=== PATIENT | male | born 1945 ===

== ENCOUNTER → 2024-07-18 | Outpatient (BNVA) | payer MEDICARE, SELFPAY | END | disposition home or self-care (01) | PROVIDERS: PCP Physician Assistant Medical; Referring Provider Physician Assistant Medical; Visit Provider Urology | DX: N40.1 Benign prostatic hyperplasia with lower urinary tract symptoms (principal); N13.8 Other obstructive and reflux uropathy; N52.9 Male erectile dysfunction, unspecified; I11.0 Hypertensive heart disease with heart failure; I50.9 Heart failure, unspecified; Z80.42 Family history of malignant neoplasm of prostate; N41.1 Chronic prostatitis; E78.00 Pure hypercholesterolemia, unspecified; I21.9 Acute myocardial infarction, unspecified | CPT/HCPCS: 81003; 99212; G0463 ==

== ENCOUNTER → 2024-07-29 | Outpatient (CLI) | payer MEDICARE, SELFPAY ==
[2024-07-29 09:55] LABS: Prostate Specific Antigen 0.48 ng/mL (0-4.00)
== END | disposition home or self-care (01) ==
LOC: COPL 08:24
PROVIDERS: PCP Family Medicine; Referring Provider Urology; Visit Provider Urology
DX: N40.1 Benign prostatic hyperplasia with lower urinary tract symptoms (principal)
CPT/HCPCS: 36415; 84153

== ENCOUNTER 2024-09-11 00:41 | Emergency (ER) | payer MEDICARE, SELFPAY ==
--- NOTE | 2024-09-11 01:02 | PD.EDADULT ---
ED General RME/HPI General Chief complaint: General Adult/Misc Complain Stated complaint: BLOOD PRESSURE HIGH Time Seen by Provider: 09/11/24 00:54 Arrival date/time: 09/11/24 00:41 RME / HPI RME / HPI narrative: This section includes all my notes and documentations, including HPI, PE, and ED course. Yaya Self MD HPI: 79yo male with a history of HTN, HLD presents to the ED for a chief complaint of high blood pressure. Patient states he has not been on any blood pressure medications for the last 2 years, but notes he checks his blood pressure daily. He states that when he checked it tonight, it was noted to be high at 190 systolically. Patient states he recently drove here from the [place] area yesterday, reporting he had chest pain and thought it was due to the seatbelt. He denies any headache, N/V, dizziness or any other associated symptoms. Patient states he took losartan 50mg that belongs to his several hours ago. No other complaints reported. ROS: All negative except as documented in HPI. Physical Exam: General:? Alert and oriented.? No acute distress.?? Eyes:? Conjunctivae and lids clear.? EOMI.? PERRL. ENT:? No nasal congestion.? Neck:? Supple.? No carotid bruit.? No JVD.?? Heart:? RRR.? Lungs:? No respiratory distress.? Good air movement.? No rhonchi, wheezing, rales.?? Skin:? Warm and dry.?? Neuro:? Alert and oriented X 3.? Cranial Nerves II-XII grossly intact.? No peripheral motor deficits. I reviewed all diagnostic test results. My interpretation of the EKG is paced rhythm. Blood tests and urine tests unremarkable. At this point, diagnoses include hypertension. Treatment here included clonidine 0.3 mg. Significant improvement noted. Prescribed clonidine and recommended more outpatient care. Based on my best medical judgment, made decision no further evaluation or treatment indicated at this time. Patient understands and agrees to the discharge instructions customized and printed, see below. Discharge Instructions from Dr. Self printed for you: 1. You were treated for very high BP. 2. Tests showed no damage to your organs, including your heart and kidneys. 3. We need to lower BP to prevent heart attacks and strokes. 4. Take clonidine0.1 mg pills as needed based on SBP (higher number of BP). Check your BP twice daily (about 12 hours apart). If SBP > 140, take one pill. If SBP > 160, take two pills. If SBP > 180, take three pills. If SBP > 200, take four pills. 5. See a private doctor on 09/12/2024 for recheck and further care. 6. Seek immediate medical care with worsening or with any concerns. Instrucciones de benjamín del Dr. Self impresas para usted: 1. Recibi? tratamiento por presi?n arterial muy benjamín. 2. Las pruebas no mostraron da?os en kaitlin ?rganos, incluyendo el coraz?n y los ri?ones. 3. Necesitamos reducir la presi?n arterial para prevenir ataques card?acos y accidentes cerebrovasculares. 4. [place] clonidina en pastillas de 0.1 mg seg?n sea necesario, seg?n la presi?n arterial sist?lica (PAS). Controle marvin presi?n arterial dos veces al d?a (con un intervalo de aproximadamente 12 horas). Si la PAS es > 140, tome stephy pastilla. Si la PAS es > 160, tome dos pastillas. Si la PAS es > 180, tome angel pastillas. Si la PAS es > 200, tome cuatro pastillas. 5. Consulte con un m?dico particular el 12/09/2024 para stephy nueva revisi?n y atenci?n adicional. 6. Busque atenci?n m?dica inmediata si la presi?n arterial empeora o si tiene alguna inquietud. Yaya Self MD Related Data Home Medications ?Medication ?Instructions ?Recorded ?Confirmed simvastatin 10 mg tablet 10 mg PO QPM 12/03/17 07/18/24 doxazosin 4 mg tablet 4 mg PO QDAY 09/24/19 07/18/24 carvedilol 3.125 mg tablet 3.125 mg PO BID 07/18/24 07/18/24 sulfamethoxazole 800 1 tab PO BID 07/18/24 07/18/24 mg-trimethoprim 160 mg tablet (Bactrim DS) Previous Rx's ?Medication ?Instructions ?Recorded clonidine HCl 0.1 mg tablet 0.1 mg PO BID #60 tabs 09/11/24 Allergies Allergy/AdvReac Type Severity Reaction Status Date / Time No Known Allergies Allergy Verified 07/18/24 08:27 Review of Systems Review of Systems Systems Reviewed: All systems reviewed, normal except as documented Past Medical History Past Medical History NEUROLOGIC: Negative Seizures CARDIAC: Positive Cardiac Disorders, Myocardial Infarction, Hypercholesterolemia and Hypertension; Negative Congestive Heart Failure RESPIRATORY: Negative Chronic Obstructive Pulmonary Disease (COPD) GENITOURINARY: Negative Renal Disease ENDOCRINE: Negative Diabetes Mellitus Type 1 or Diabetes Mellitus Type 2 OTHER HISTORY: Negative Autoimmune Disease, Blood Transfusions, Blood Transfusion Reaction or Anesthesia Reactions Family History FAMILY HISTORY: Negative Family Anesthesia Reaction Social History SMOKING STATUS: Never smoker ED Exam Narrative Physical exam: As noted in HPI. Course Quality Measures none Orders Category Date Time Status EKG (ED ONLY) *Do not use* NOW Care 09/11/24 01:05 Completed EKG (ED Only) Stat Exams 09/11/24 01:05 Draft CBC Stat Lab 09/11/24 01:25 Completed CMP [Comprehensive Metabolic Panel] Stat Lab 09/11/24 01:25 Completed Free T4 (Free Thyroxine) Stat Lab 09/11/24 01:25 Completed Magnesium Stat Lab 09/11/24 01:25 Completed TSH [Thyroid Stimulating Hormone] Stat Lab 09/11/24 01:25 Completed Troponin I Stat Lab 09/11/24 01:25 Completed UA, C/S IF [Urinalysis, C/S if Indicated] Stat Lab 09/11/24 01:29 Completed cloNIDine HCL [Catapres] Med 09/11/24 01:04 Discontinued 0.3 mg PO X1 ONE Vital Signs Vital signs: Vital Signs Temperature 97.7 F 09/11/24 01:04 Pulse Rate 61 09/11/24 01:04 Respiratory Rate 18 09/11/24 01:04 Blood Pressure 176/80 H 09/11/24 01:04 Pulse Oximetry (%) 99 09/11/24 01:04 Oxygen Delivery Method Room Air 09/11/24 01:04 [facility] Patient data External records reviewed:: [facility] previous records (Per chart review, patient has no relevant previous ED visits or admissions to this facility.) Clinical information provided by:: patient Social determinants that could affect healthcare access:: none Patient has the following chronic illnesses:: HTN, HLD How is presenting disease/condition affected by chronic disease/condition?: caused by Evaluation data The following diagnostics were reviewed and interpreted by me:: lab results and EKG tracing(s) (My interpretation of the EKG is: Paced rhythm (60 bpm). Yaya Self MD) Lab and/or radiology exams considered but not ordered:: none Interpretation Summary: Normal diagnostics Medications Medications considered but not ordered:: none Medication administrations:: Medication Administration History Discontinued Medications Clonidine (Clonidine Hcl 0.1 Mg Tablet) 0.3 mg PO X1 ONE Stop: 09/11/24 01:05 Last Admin: 09/11/24 01:26 Dose: 0.3 mg Documented By: EVERT Clonidine Consultations Consultation(s) initiated? (list below): No Diagnosis Differential Diagnosis ED Complaint MDM: [place], hypertensive urgency, hypertensive emergency, electrolyte abnormalities Most likely diagnosis given after review of the tests above:: Hypertensive urgency Admission Indicated Admission indicated?: not indicated Explain why admission is indicated or not indicated:: With significant improvement, there was no indication for admission. Admission Request Was there a request for admission?: No Disposition Plan Disposition Plan: Discharge Discharge Attestation Discharge Attestation: The patient and all family members were given an opportunity to ask questions and understood the discharge instructions. Discharge instructions specifically effects, indications for sooner follow up or return to the emergency department, and the expected course of current diagnosis. Patient condition: Stable Medical Decision Making MDM Narrative MDM Narrative: Scribe Attestation: 09/11/24 - Karie Nath am scribing for and in the presence of Dr. Self. Differential Diagnosis Differential Diagnosis: [place], hypertensive urgency, hypertensive emergency, electrolyte abnormalities Lab Data 09/11/24 01:25 09/11/24 01:25 Labs: Lab Results 09/11/24 09/11/24 Range/Units 01:25 01:29 WBC 7.3 (3.8-10.6) Thou/mm3 RBC 3.86 L (4.50-5.90) Miln/mm3 Hgb 13.2 L (13.5-16.0) g/dL Hct 38.4 L (41.0-53.0) % MCV 100 (80-100) fL MCH 34.2 (25.0-35.0) pg MCHC 34.4 (31.0-37.0) g/dl RDW Std Deviation 48.5 H (35.1-43.9) fL Plt Count 152 (140-440) Thou/mm3 Neut % (Auto) 58 (37-80) % Lymph % (Auto) 28 (10-50) % [place] % (Auto) 11 (0-12) % Eos % (Auto) 2 (0-10) % Baso % (Auto) 1 (0-2.5) % Neut # (Auto) 4.3 (1.8-7.7) Thou/mm3 Lymph # (Auto) 2.1 (1.0-4.8) Thou/mm3 [place] # (Auto) 0.8 (0.0-0.8) Thou/mm3 Eos # (Auto) 0.1 (0.0-0.5) Thou/mm3 Baso # (Auto) 0.0 (0.0-0.2) Thou/mm3 Immature Gran # (Auto) 0.01 H (0.00-0.00) Thou/mm3 Absolute Nucleated RBC 0.00 (0.00-0.00) Thou/mm3 Immature Gran % 0 (0-0) % Nucleated RBC % 0 (0) /100 WBC Sodium 140 (136-145) mMol/L Potassium 3.9 (3.4-5.1) mMol/L Chloride 105 (98-107) mMol/L Carbon Dioxide 28.9 (20.0-31.0) mMol/L Anion Gap 6 L (7-16) BUN 14 (9-23) mg/dL Creatinine 1.1 (0.6-1.3) mg/dL Estim Creat Clear Calc 53.9 L (>60) mL/min eGFR > 60 (60 - ) See Note BUN/Creatinine Ratio 13 (12-20) Ratio Glucose 123 H (74-106) mg/dL Calculated Osmolality 280 (275-295) Calcium 9.3 (8.3-10.6) mg/dL Corrected Calcium 9.3 (8.5-10.1) mg/dL Magnesium 2.1 (1.6-2.6) mg/dL Total Bilirubin 1.6 H (0.3-1.2) mg/dL AST 34 (0-34) U/L ALT 24 (10-49) U/L Alkaline Phosphatase 117 H (46-116) U/L Troponin I < 0.020 (0.0-0.045) ng/mL Total Protein 7.3 (5.7-8.2) gm/dL Albumin 4.2 (3.4-4.8) gm/dL Globulin 3.1 (2.3-3.5) gm/dL Albumin/Globulin Ratio 1.4 (1.2-2.2) TSH 3.49 (0.55-4.78) uIU/mL Free T4 1.16 (0.89-1.76) ng/dL Ur Collection Type Clean Catch Urine Color Colorless A (Lt Yel-Yel) Urine Clarity Clear (Clear/Hazy) Urine pH 7.0 (5.0-7.0) Ur Specific [place] 1.005 (1.001-1.035) Urine Protein Negative (Neg - Trace) Urine Glucose (UA) Negative (Negative) Urine Ketones Negative (Negative) Urine Blood Negative (Negative) Urine Nitrite Negative (Negative) Urine Bilirubin Negative (Negative) Urine Urobilinogen (Auto) Negative (0.0-1.0) mg/dL Ur Leukocyte Esterase Negative (Negative) Urine RBC 1 (0-3) /hpf Urine WBC 1 (0-5) /hpf Ur Squamous Epith Cells 0 (0-5) /hpf Urine Bacteria None (None) Ur Culture Indicated? Not Indicated Discharge Plan Plan Patient Disposition: HOME (Self Care) Prescriptions/Referrals Prescriptions/Med Rec: New clonidine HCl 0.1 mg tablet 0.1 mg PO BID Qty: 60 0RF No Action carvedilol 3.125 mg tablet 3.125 mg PO BID Rx Instructions: must administer with a meal/food sulfamethoxazole-trimethoprim [Bactrim DS] 800-160 mg tablet 1 tab PO BID simvastatin 10 mg Tablet 10 mg PO QPM doxazosin 4 mg Tablet 4 mg PO QDAY Problem List Clinical Impression: Hypertension Patient/Caregiver Discharge Instructions Discharge Activity: activity as tolerated Education Materials: ED Hypertension, Established Additional Instructions: Discharge Instructions from Dr. Self printed for you: 1. You were treated for very high BP. 2. Tests showed no damage to your organs, including your heart and kidneys. 3. We need to lower BP to prevent heart attacks and strokes. 4. Take clonidine0.1 mg pills as needed based on SBP (higher number of BP). Check your BP twice daily (about 12 hours apart). If SBP > 140, take one pill. If SBP > 160, take two pills. If SBP > 180, take three pills. If SBP > 200, take four pills. 5. See a private doctor on 09/12/2024 for recheck and further care. 6. Seek immediate medical care with worsening or with any concerns. Instrucciones de benjamín del Dr. Self impresas para usted: 1. Recibi? tratamiento por presi?n arterial muy benjamín. 2. Las pruebas no mostraron da?os en kaitlin ?rganos, incluyendo el coraz?n y los ri?ones. 3. Necesitamos reducir la presi?n arterial para prevenir ataques card?acos y accidentes cerebrovasculares. 4. [place] clonidina en pastillas de 0.1 mg seg?n sea necesario, seg?n la presi?n arterial sist?lica (PAS). Controle marvin presi?n arterial dos veces al d?a (con un intervalo de aproximadamente 12 horas). Si la PAS es > 140, tome stephy pastilla. Si la PAS es > 160, tome dos pastillas. Si la PAS es > 180, tome angel pastillas. Si la PAS es > 200, tome cuatro pastillas. 5. Consulte con un m?dico particular el 12/09/2024 para stephy nueva revisi?n y atenci?n adicional. 6. Busque atenci?n m?dica inmediata si la presi?n arterial empeora o si tiene alguna inquietud. Print Language: Chinese Stand Alone Forms: Marilee Award Info., Patient Portal Info Letter
[2024-09-11 01:04] VITALS: BP 176/80; PULSE 61; RESP 18; TEMP 36.5; O2SAT 99; BMI 29.2
--- NOTE | 2024-09-11 01:05 | EKG_ITS ---
[facility] Test Date: 2024-09-11 Pat Name: ONI MURPHY Department: Room: - Gender: Male Elderly Caregiver: : 1945 Requested By: Yaya Raza Order Number: [id number] Reading MD: Yaya Raza Measurements Intervals [place] Rate: 60 P: 51 IA: 179 QRS: -84 QRSD: 193 T: 71 QT: 509 QTc: 509 Interpretive Statements ELECTRONIC ATRIAL PACEMAKER ELECTRONIC VENTRICULAR PACEMAKER ABNORMAL RHYTHM ECG Compared to ECG 11/23/2022 14:03:41 No significant changes /store/S0/[id number]
[2024-09-11 01:22] VITALS: BP 161/75; PULSE 61; RESP 21
[2024-09-11 01:26] VITALS: BP 161/75; PULSE 62
[2024-09-11] MEDS: cloNIDine HCL 0.1 MG TABLET 0.3 MG PO (01:26)
[2024-09-11 01:37] LABS: Basophils % (Auto) 1 % (0-2.5); Eosinophils # (Auto) 0.1 Thou/mm3 (0.0-0.5); Eosinophils % (Auto) 2 % (0-10); Hematocrit 38.4 % (41.0-53.0); Hemoglobin 13.2 g/dL (13.5-16.0); Immature Granulocytes % (Auto) 0 % (0-0); Immature Granulocytes Auto 0.01 Thou/mm3 (0.00-0.00); Lymphocytes # (Auto) 2.1 Thou/mm3 (1.0-4.8); Lymphocytes % (Auto) 28 % (10-50); Mean Corpuscular HGB Conc 34.4 g/dl (31.0-37.0); Mean Corpuscular Hemoglobin 34.2 pg (25.0-35.0); Mean Corpuscular Volume 100 fL (80-100); Monocytes # (Auto) 0.8 Thou/mm3 (0.0-0.8); Monocytes % (Auto) 11 % (0-12); Neutrophils # (Auto) 4.3 Thou/mm3 (1.8-7.7); Neutrophils % (Auto) 58 % (37-80); Nucleated Red Blood Cell % 0 /100 WBC (0); Platelet Count 152 Thou/mm3 (140-440); RDW Standard Deviation 48.5 fL (35.1-43.9); Red Blood Count 3.86 Miln/mm3 (4.50-5.90); White Blood Count 7.3 Thou/mm3 (3.8-10.6)
[2024-09-11 01:38] LABS: Collection Type, Urine Clean Catch; Squamous Epithelial Cell,Urine 0 /hpf (0-5)
[2024-09-11 01:44] LABS: Bilirubin,Urine Negative (Negative); Blood,Urine Negative (Negative); Clarity,Urine Clear (Clear/Hazy); Color,Urine Colorless (Lt Yel-Yel); Culture Indicated,Urine Not Indicated; Glucose, Urine Negative (Negative); Ketones,Urine Negative (Negative); Leukocyte Esterase,Urine Negative (Negative); Nitrite,Urine Negative (Negative); Protein,Urine Negative (Neg - Trace); RBC,Urine 1 /hpf (0-3); Specific Gravity,Urine 1.005 (1.001-1.035); Urobilinogen,Urine Negative mg/dL (0.0-1.0); WBC,Urine 1 /hpf (0-5)
[2024-09-11 01:59] LABS: Alanine Aminotransferase 24 U/L (10-49); Albumin, Serum 4.2 gm/dL (3.4-4.8); Albumin/Globulin Ratio 1.4 (1.2-2.2); Alkaline Phosphatase 117 U/L (46-116); Anion Gap 6 (7-16); Aspartate Amino Transferase 34 U/L (0-34); BUN/Creatinine Ratio 13 Ratio (12-20); Bilirubin,Total 1.6 mg/dL (0.3-1.2); Blood Urea Nitrogen 14 mg/dL (9-23); Calcium 9.3 mg/dL (8.3-10.6); Calcium (Corrected) 9.3 mg/dL (8.5-10.1); Carbon Dioxide 28.9 mMol/L (20.0-31.0); Chloride 105 mMol/L (98-107); Creatinine (Component) 1.1 mg/dL (0.6-1.3); Estimated Creatinine Clearance 53.9 mL/min (>60); Free T4 (Free Thyroxine) 1.16 ng/dL (0.89-1.76); Globulin 3.1 gm/dL (2.3-3.5); Glucose 123 mg/dL (74-106); Magnesium 2.1 mg/dL (1.6-2.6); Osmolality,Calculated 280 (275-295); Potassium 3.9 mMol/L (3.4-5.1); Sodium 140 mMol/L (136-145); Thyroid Stimulating Hormone 3.49 uIU/mL (0.55-4.78); Total Protein 7.3 gm/dL (5.7-8.2); Troponin I < 0.020 ng/mL (0.0-0.045); eGFR > 60 See Note
[2024-09-11 02:00] VITALS: BP 112/62; PULSE 61; RESP 16; O2SAT 94
[2024-09-11 02:45] VITALS: BP 105/64; PULSE 62; RESP 18; TEMP 36.6; O2SAT 98
== END 2024-09-11 02:50 | disposition home or self-care (01) ==
LOC: SERX 03:29
PROVIDERS: Emergency Provider Emergency Medicine
DX: I10 Essential (primary) hypertension (principal); R94.31 Abnormal electrocardiogram [ECG] [EKG]; I25.2 Old myocardial infarction; E78.00 Pure hypercholesterolemia, unspecified; Z95.0 Presence of cardiac pacemaker
CPT/HCPCS: 36415; 80053; 81001; 83735; 84439; 84443; 84484; 85025; 93005; 96372; 99283; A9270

== ENCOUNTER → 2024-09-25 | Outpatient (BNVA) | payer MEDICARE, SELFPAY | END | disposition home or self-care (01) | PROVIDERS: PCP Family Medicine; Referring Provider Family Medicine; Visit Provider Urology | DX: N40.1 Benign prostatic hyperplasia with lower urinary tract symptoms (principal); R39.12 Poor urinary stream; I10 Essential (primary) hypertension; E78.00 Pure hypercholesterolemia, unspecified; I25.2 Old myocardial infarction | CPT/HCPCS: 51741; 51798 ==

== ENCOUNTER → 2024-11-17 | Outpatient (BNVA) | payer MEDICARE, SELFPAY | END | disposition home or self-care (01) | PROVIDERS: PCP Physician Assistant Medical; Referring Provider Physician Assistant Medical; Visit Provider Urology | DX: N40.1 Benign prostatic hyperplasia with lower urinary tract symptoms (principal); N13.8 Other obstructive and reflux uropathy; I10 Essential (primary) hypertension; E78.00 Pure hypercholesterolemia, unspecified; I25.2 Old myocardial infarction | CPT/HCPCS: 76872 ==